=== PATIENT | male | born 2000 | race Caucasian/White ===

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

== ENCOUNTER 2021-02-12 21:51 | Emergency (ER) | payer MEDICAID, SELFPAY ==
[2021-02-12 21:51] VITALS: BP 118/76; PULSE 94; RESP 15; TEMP 36.6; O2SAT 97; BMI 21.1
--- NOTE | 2021-02-12 23:52 | RAD_ITS ---
STUDY: X-RAY CHEST REASON FOR EXAM: Male, 20 years old. Chest pain, cough, shortness of breath TECHNIQUE: Single AP portable view of the chest. COMPARISON: 07/10/2019. FINDINGS: There are no confluent pulmonary infiltrates. There is no demonstrated pleural abnormality. Normal size heart. Normal mediastinum and dwight. Normal visualized aortic arch and descending thoracic aorta. There are no demonstrated acute fractures or destructive bone lesions. There is no demonstrated abnormality of the visualized soft tissue structures of the upper abdomen. RAD/Chest 1 View (Portable) IMPRESSION: Normal x-ray examination of the chest. Electronically Signed: Dwain Coombs MD at 0:10 EDT , Service support ,
--- NOTE | 2021-02-13 00:23 | EX.ED.DYSGE1 ---
HPI History of Present Illness Chief Complaint: General Illness Informant: patient Onset/Context/Timing Onset: Yesterday Context: Sudden Onset Timing: Intermittent and Waxes and wanes Quality: Pain Location: Alternate between right and left side with viral-like symptoms Current Severity: Mild Maximum Severity: Moderate Worsened by: Deep breathing Relieved by: Nothing Associated Symptoms Associated Symptoms: Rhinorrhea, postnasal drainage, nausea, diarrhea 5 days ago, cough Narrative Narrative: Patient is a 20-year-old male who presents with viral-like symptoms. He denies exposure to Covid. Not vaccinated. He denies fever or chills. Nuys headache, photophobia, neck pain or neck stiffness. He does report upper respiratory type symptoms. He denies loss of taste or smell. He does report abdominal pain and localizes the pain over the lower anterior rib cage. He denies intolerance to greasy or fried foods. He denies blood in his stool. He denies black stool. He denies urologic symptoms. He denies myalgias or arthralgias. Denies joint swelling. Prior similar symptoms: No Recent Illness/Hospitalization: No PFSH PFSH no medical history Home Medications NK 02/13/21 [History Last Taken Unknown] Allergy/AdvReac Type Severity Reaction Status Date / Time No Known Allergies Allergy Verified 02/12/21 21:51 no surgical history Social History (Updated 02/13/21 @ 00:[address] Bart Gonzalez MD) household members: significant other Smoking Status: Never smoker alcohol intake: never substance use type: does not use ROS ROS ED Constitutional Constitutional ED: Denies chills, fever(s), subjective or sweats Eyes Eyes: Denies blurry vision, change in vision or diplopia ENT ENT ED: Reports rhinorrhea and sore throat; Denies ear pain Cardiovascular Cardiovascular: Reports chest pain; Denies orthopnea, palpitations, paroxysmal nocturnal dyspnea or racing heartbeat Respiratory/Chest Respiratory/Chest: Reports cough, dyspnea and dyspnea on exertion; Denies orthopnea, paroxysmal nocturnal dyspnea or sputum Gastrointestinal Gastrointestinal: Reports abdominal pain, diarrhea and nausea; Denies constipation or vomiting Genitourinary Genitourinary ED: Denies dysuria, hematuria or urinary frequency Musculoskeletal Musculoskeletal: Denies arthralgias, back pain, myalgias or neck pain Integumentary Denies abscess or rash Neurologic Neurologic: Reports headache(s); Denies paresthesias or weakness Psychiatric Psychiatric: Denies depression Allergic/Immunologic Allergic/Immunologic ED: Denies mouth swelling, tongue swelling or urticaria EXAM Physical Exam Const Vital Signs: 02/12/21 21:51 02/13/21 00:06 Temperature 97.8 F Temperature Source Temporal Pulse Rate 94 Respiratory Rate 15 Respiratory Effort Normal Respiratory Pattern Normal Blood Pressure 118/76 Blood Pressure Mean 90 Pulse Ox 97 Oxygen Delivery Method Room Air Positive well nourished and well developed General Appearance ED: well developed and NAD HEENT Reports TM's clear and moist mucous membranes HEENT Narrative: Nares patent. Heads atraumatic normocephalic. Tympanic Membrane ED: Yes TM's clear Eyes PERRL and EOMs intact bilaterally General Eye ED: Negative for pale conjunctiva or scleral icterus Neck no lymphadenopathy, supple and no JVD Chest Wall inspection of chest normal Resp normal respiratory effort and clear to auscultation bilaterally Cardio regular rate, regular rhythm, S1 normal heart sound, S2 normal heart sound and no murmurs GI normal to inspection, nondistended, normoactive bowel sounds and non-tender Palpation: soft Back/Spine no CVA tenderness Thoracic Spine / Upper Back: Negative for thoracic spinal tenderness or paraspinal muscle tenderness Extremity normal to inspection General Extremety ED: Negative for edema or tenderness General Extremity: Negative for edema Neuro oriented x3, CN's II-XII intact bilaterally and no sensory deficits noted Sensorium / Orientation: alert Motor Exam: strength 5/5 throughout Psych mental status grossly normal Skin no rashes or lesions noted, no wounds and skin turgor normal MDM MDM MDM Narrative Medical decision making narrative: Patient with viral-like symptoms. This may represent Covid versus other common virus. Chest x-ray was obtained to evaluate his chest pain, cough shortness of breath. And a Covid test. Lab Data Attestation: I reviewed the patient's lab results. Lab results narrative: Covid test is negative. Radiography Chest X-Ray - ED: 1 View, Read by ED Physician (Interpreted by me at [id number]), Normal, Heart, Lungs, Mediastinum, Bony Structures and No Acute Disease Diagnostic Testing: Radiology Impression Chest X-Ray 02/12/21 23:52 IMPRESSION: Normal x-ray examination of the chest. Electronically Signed: Dwain Coombs MD at 0:10 EDT , Service support , Discharge Plan Triage Chief Complaint: General Illness ED Provider: Bart Gonzalez Dx/Rx/DC Orders Clinical Impression: Acute viral syndrome Instructions: ED Viral Syndrome (Adult) Prescriptions: No Action NK RF: 0 Primary Care Provider: César Glass Referrals: César Glass MD [Primary Care Provider] - As Needed Disposition Disposition: Home, Self Care
[2021-02-13 01:42] VITALS: PULSE 78; RESP 16; O2SAT 100
== END 2021-02-13 01:43 | disposition home or self-care (01) ==
PROVIDERS: Emergency Provider Emergency Medicine; PCP Pediatrics
DX: B34.9 Viral infection, unspecified (principal)
CPT/HCPCS: 71045; 87426; 99282

== ENCOUNTER 2022-11-04 23:24 | Emergency (ER) | payer MEDICAID, SELFPAY ==
[2022-11-04 23:25] VITALS: BP 113/74; PULSE 54; RESP 15; TEMP 36.9; O2SAT 99; BMI 21.6
--- NOTE | 2022-11-05 00:46 | EKG12_ITS ---
Test Reason : DIZZINESS Blood Pressure : / mmHG Vent. Rate : 050 BPM Atrial Rate : 050 BPM P-R Int : 148 ms QRS Dur : 102 ms QT Int : 402 ms P-R-T Axes : 073 078 056 degrees QTc Int : 366 ms Sinus bradycardia Otherwise normal ECG No previous ECGs available Confirmed by CHASTITY HARVEY, OLIVIER ([id number]), editorial assistant STEPHANIE BAL ([id number]) on 11/08/2022 8:16:20 AM Referred By: BRITTANY Confirmed By:OLIVIER HAYWOOD MD
[2022-11-05] MEDS: Meclizine HCl 25 MG Tablet PO (00:51)
[2022-11-05 01:14] LABS: Bedside Glucose 78 mg/dL (74-106)
--- NOTE | 2022-11-05 02:09 | EDS_ITS ---
HPI History of Present Illness Chief Complaint: Dizziness Informant: patient Narrative Narrative: Patient is a 22-year-old male with no significant past medical history presenting with dizziness/lightheadedness. Patient states been going on for the past 2 to 3 days. Patient states symptoms are worse when he is at work. He notes he has to move a lot of things and is usually looking to his left. He states it almost feels like he is hung over drunk but he does not drink. He has had some mild nasal congestion recently. Notes when he turns around he feels off balance. He does get some associated nausea but not had any vomiting. Currently is not having too much symptoms. Also reports that he does get intermittent episodes of right-sided chest pain but has been told in the past its because of his ribs. Has some chronic ringing in his ears with no acute change in it. No other complaints at this time. [facility] today for [facility] pain was diagnosed with muscle spasm. He was prescribed tizanidine. He is not started taking this yet. PFSH PFS Medical History GERD (gastroesophageal reflux disease) Medical History no medical history Home Medications meclizine 25 mg tablet 25 mg PO 4X/DAY PRN PRN Dizziness #20 tabs 11/05/22 [Rx Last Taken Unknown] Allergy/AdvReac Type Severity Reaction Status Date / Time amoxicillin [From Augmentin] AdvReac PT UNSURE Verified 11/04/22 23:28 OF REACTION clavulanic acid AdvReac PT UNSURE Verified 11/04/22 23:28 [From Augmentin] OF REACTION Social History household members: significant other Smoking Status: Never smoker alcohol intake: never substance use type: does not use ROS ROS ED Constitutional Constitutional ED: Denies chills or fever(s) Eyes Eyes: Denies blurry vision or change in vision ENT ENT ED: Reports other Details: nasal congestion ; Denies ear pain or rhinorrhea Cardiovascular Cardiovascular: Reports chest pain; Denies palpitations Respiratory/Chest Respiratory/Chest: Denies cough or dyspnea Gastrointestinal Gastrointestinal: Reports nausea; Denies abdominal pain or vomiting Genitourinary Genitourinary ED: Denies dysuria Musculoskeletal Musculoskeletal: Reports back pain; Denies arthralgias or myalgias Integumentary Denies rash Neurologic Neurologic: Reports other Details: dizziness ; Denies headache(s) or weakness Psychiatric Psychiatric: Denies anxiety Hematologic/Lymphatic Hematologic/Lymphatic: Denies easy bruising EXAM Physical Exam Const Vital Signs: 11/04/22 23:25 11/05/22 00:33 11/05/22 02:40 Temperature 98.5 F Temperature Source Temporal Pulse Rate 54 L Pulse Rate [Lying] 54 L Pulse Rate [Sitting (for 1 minute prior to obtaining)] 52 L Pulse Rate [Standing (for 1 minute prior to obtaining)] 63 Respiratory Rate 15 Respiratory Effort Normal Non-Labored Respiratory Pattern Normal Blood Pressure 113/74 Blood Pressure [Lying] 108/69 Blood Pressure [Sitting (for 1 minute prior to obtaining)] 116/79 Blood Pressure [Standing (for 1 minute prior to obtaining)] 109/72 Blood Pressure Mean 87 Blood Pressure Mean [Lying] 82 Blood Pressure Mean [Sitting (for 1 minute prior to obtaining)] 91 Blood Pressure Mean [Standing (for 1 minute prior to obtaining)] 84 Pulse Ox 99 Oxygen Delivery Method Room Air Positive well nourished and well developed General Appearance ED: well developed and NAD HEENT Reports TM's clear and moist mucous membranes Tympanic Membrane ED: Yes TM's clear Eyes PERRL and EOMs intact bilaterally Eyes Narrative: No significant nystagmus but symptoms do seem to be worse with leftward gaze and left-sided Ayana-Hallpike maneuver Neck supple and no JVD Chest Wall inspection of chest normal and palpation of chest normal Resp normal respiratory effort and clear to auscultation bilaterally Cardio regular rate, regular rhythm and no murmurs GI normal to inspection, nondistended, normoactive bowel sounds and non-tender Back/Spine no CVA tenderness Thoracic Spine / Upper Back: Negative for thoracic spinal tenderness Lumbar Spine / Lower Back: Negative for lumbar spinal tenderness Extremity normal to inspection General Extremety ED: Negative for edema or tenderness General Extremity: Negative for edema Neuro oriented x3, CN's II-XII intact bilaterally and no sensory deficits noted Neuro Narrative: Normal coordination, normal [id number]. No truncal ataxia. Motor Exam: strength 5/5 throughout Psych mental status grossly normal Skin no rashes or lesions noted and no wounds MDM MDM MDM Narrative Medical decision making narrative: Patient is evaluated for dizziness. He also reports this vague but chronic sounding chest pain. Currently does not have any. He states this really seems like peripheral vertigo. He had some recent mild nasal congestion. Ayana- Hallpike is not highly consistent with vertigo however he states it does make him feel dizzy. His symptoms improved with meclizine. He is orthostatic negative. His glucose is normal. Given his age, well appearance and normal EKG I do not think he requires further work-up at this time for symptoms. He is encouraged to follow-up with primary care doctor. Given return precautions. Patient is counseled on Milla maneuver, particle repositioning therapy. Patient agreeable with plan of care. Lab Data Attestation: I reviewed the patient's lab results. Labs: Laboratory Results - last 24 hr 11/05/22 00:54 POC Glucose 78 Rhythm Strip Rhythm Strip: Sinus bradycardia Rate: 50 Ectopy: None EKG Initial EKG: Attestation: I personally reviewed and interpreted this EKG as follows: Interpretation: Sinus Bradycardia Comments: Sinus bradycardia rate of 50 bpm Normal axis Normal intervals Normal ST segments No prior EKG available for comparison Discharge Plan Triage Chief Complaint: Dizziness ED Provider: Ruby Garrett Dx/Rx/DC Orders Clinical Impression: Episodic peripheral vertigo, Bradycardia Instructions: ED BPV Vertigo Prescriptions: New meclizine 25 mg tablet 25 mg PO 4X/DAY PRN PRN (Reason: Dizziness) Qty: 20 0RF Stand Alone Forms: ED Work / School Excuse Primary Care Provider: Care Physician,No Primary Referrals: Angel Casillas MD [Med Staff - Active Staff] - 3-5 Days if not improving Care Physician,No Primary [Primary Care Provider] - Disposition Disposition: Home, Self Care Discharge Date/Time: 11/05/22 03:04
[2022-11-05 02:40] VITALS: BP 108/69; BP 109/72; BP 116/79; PULSE 52; PULSE 54; PULSE 63
== END 2022-11-05 03:04 | disposition home or self-care (01) ==
PROVIDERS: Emergency Provider Emergency Medicine; Visit Provider Emergency Medicine
DX: H81.399 Other peripheral vertigo, unspecified ear (principal); R00.1 Bradycardia, unspecified
CPT/HCPCS: 82962; 93005; 99283